=== PATIENT | male | born 1950 | race Caucasian/White ===

== ENCOUNTER → 2023-04-28 17:44 | Outpatient (REF) | payer MEDICARE, SELFPAY | LOC: RAD 17:44 | PROVIDERS: ATTENDING PHYSICIAN Physical Medicine & Rehabilitation; FAMILY PHYSICIAN Physician Assistant | DX: T15.90XA Foreign body on external eye, part unspecified, unspecified eye, initial encounter (principal) | CPT/HCPCS: 70030 ==